=== PATIENT | female | born 1980 | race American Indian/Alaskan Native ===

== ENCOUNTER 2021-10-23 18:00 | Emergency (ER) | payer SELFPAY | END 2021-10-23 18:56 | disposition left against medical advice (07) | LOC: ED 18:00 | DX: R19.05 Periumbilic swelling, mass or lump (principal); Z53.21 Procedure and treatment not carried out due to patient leaving prior to being seen by health care provider ==

== ENCOUNTER 2021-10-23 23:46 | Emergency (ER) | payer MEDICAID ==
[2021-10-24 00:33] LABS: Bilirubin,Urine NEG (Negative); Blood,Urine SM (Negative); Color,Urine Yellow (Yellow)
[2021-10-24 00:37] LABS: Mucus,Urine 3+ /HPF
[2021-10-24] MEDS ORDERED: ACETAMINOPEN W/CODEINE 120-12MG ORAL LIQD 5 ML PO STA (04:08)
--- NOTE | 2021-10-24 04:12 | Emergency Department Report ---
ED General Adult HPI - General Chief complaint: Back Pain/Injury Stated complaint: LUMP ON RT SIDE Time Seen by Provider: 10/24/21 04:07 Source: patient Mode of arrival: Ambulatory Limitations: No Limitations - History of Present Illness Initial comments: 41-year-old female Joshua Aleman complaining of a painful lump to her back over 1 to 2 weeks of unknown etiology but denies any trauma. Pain is dull and throbbing worse with palpation and range of motion states is a 10 out of 10 reports no fever, chills, sweats. No numbness, no tingling, no loss of bowel bladder, no saddle paresthesia, no hematuria, dysuria, no hemoptysis no hematemesis hematochezia Quality: aching Consistency: constant Associated Symptoms: denies: chest pain, cough, diaphoresis, loss of appetite, malaise, nausea/vomiting Treatments Prior to Arrival: none - Related Data Previous Rx's Medication Instructions Recorded Last Taken Type prednisoLONE 30 ml PO QDAY 5 Days #50 ml 10/24/21 Unknown Rx Allergies Allergy/AdvReac Type Severity Reaction Status Date / Time No Known Allergies Allergy Unverified 10/23/21 23:47 ED Review of Systems ROS: Stated complaint: LUMP ON RT SIDE Other details as noted in HPI Comment: All other systems reviewed and negative ED Past Medical Hx - Past Medical History Previous Medical History?: Yes Hx Asthma: Yes - Surgical History Past Surgical History?: Yes Additional Surgical History: left shoulder - Social History Smoking Status: Never Smoker Substance Use Type: Alcohol, Marijuana - Medications Home Medications: Home Medications Medication Instructions Recorded Confirmed Last Taken Type prednisoLONE 30 ml PO QDAY 5 Days #50 ml 10/24/21 Unknown Rx ED Physical Exam - General Limitations: No Limitations General appearance: alert, in no apparent distress, other (Patient is resting comfortably no acute distress does not appear to be in an increased amount of pain) - Head Head exam: Present: atraumatic, normocephalic - Eye Eye exam: Present: normal appearance, PERRL, EOMI Pupils: Present: normal accommodation - ENT ENT exam: Present: normal exam, normal orophraynx, mucous membranes moist, TM's normal bilaterally - Neck Neck exam: Present: normal inspection, full ROM - Respiratory Respiratory exam: Present: normal lung sounds bilaterally. Absent: respiratory distress - Cardiovascular Cardiovascular Exam: Present: regular rate, normal rhythm. Absent: systolic murmur, diastolic murmur, rubs, gallop - GI/Abdominal GI/Abdominal exam: Present: soft, normal bowel sounds - Extremities Exam Extremities exam: Present: normal inspection - Back Exam Back exam: Present: normal inspection, tenderness - Expanded Back Exam Expanded 1 - Cystic mass to this region. No cellulitis no lymphangitis present. There is some discomfort with palpation. - Neurological Exam Neurological exam: Present: alert, oriented X3 - Psychiatric Psychiatric exam: Present: normal affect, normal mood - Skin Skin exam: Present: warm, dry, intact, normal color. Absent: rash ED Course Vital Signs 10/23/21 23:47 Temperature 98.5 F Pulse Rate 103 H Respiratory 18 Rate Blood Pressure 135/96 O2 Sat by Pulse 97 Oximetry Critical care attestation.: If time is entered above; I have spent that time in minutes in the direct care of this critically ill patient, excluding procedure time. ED Disposition Clinical Impression: Cyst, Back pain Disposition: HOME / SELF CARE / HOMELESS Is pt being admited?: No Does the pt Need Aspirin: No Condition: Stable Instructions: Acute Back Pain, Adult Prescriptions: prednisoLONE 30 ml PO QDAY 5 Days #50 ml Referrals: ELODIA GONSALEZ MD [Primary Care Provider] - 3-5 Days
[2021-10-24 04:24] VITALS: BP 142/97
[2021-10-26] MEDS ORDERED: prednisoLONE SOD PHOSPHATE 15 MG/5 ML ORAL LIQD PO ONE (15:25)
== END 2021-10-24 04:24 | disposition home or self-care (01) ==
LOC: ED 23:46
DX: L72.0 Epidermal cyst (principal); F10.20 Alcohol dependence, uncomplicated; F12.90 Cannabis use, unspecified, uncomplicated; J45.909 Unspecified asthma, uncomplicated
CPT/HCPCS: 81001; 99283